=== PATIENT | male | born 1985 | race Caucasian/White ===

== ENCOUNTER 2017-11-10 07:03 | Emergency (ER) | payer BC ==
[2017-11-10 07:15] VITALS: BP 139/88
--- NOTE | 2017-11-10 07:23 | UC ---
Lower Extremity/Ankle HPI - HPI Summary HPI Summary: A 32 y/o M presents to [facility] with infected L great toe onset approx one month ago but worsening over the past few days. Sx include bleeding, purulent, edema. Denies fever. Pt states he cut the toenail too short. Pt has been putting Neosporin on it. No PMHx: MRSA. NKDA. - History of Current Complaint Chief Complaint: [place] Stated Complaint: TOE PAIN Time Seen by Provider: 11/10/17 07:10 Hx Obtained From: Patient Onset/Duration: Lasting Days - worsened, Still Present Severity Initially: Moderate Severity Currently: Moderate Pain Intensity: 5 Pain Scale Used: 0-10 Numeric - Allergies/Home Medications Allergies/Adverse Reactions: Allergies Allergy/AdvReac Type Severity Reaction Status Date / Time No Known Allergies Allergy Verified 11/10/17 07:15 Home Medications: Home Medications Loratadine [Claritin 10 MG CAP] 10 mg PO DAILY WITH MEAL 11/10/17 [History Confirmed 11/10/17] PMH/Surg Hx/FS Hx/Imm Hx Previously Healthy: Yes Other Cardiovascular History: neg: HTN Other Respiratory History: neg: COPD - Surgical History Surgical History: Yes Surgery Procedure, Year, and Place: wisdom teeth - Family History Known Family History: Positive: Hypertension Negative: Cardiac Disease, Diabetes - Social History Occupation: Employed Full-time Alcohol Use: Daily Substance Use Type: None Smoking Status (MU): Never Smoked Tobacco Review of Systems Constitutional: Other - neg: fever Skin: Other - L great toe has erythema, pus, swelling All Other Systems Reviewed And Are Negative: Yes Physical Exam - Summary Physical Exam Summary: General: well-appearing, no pain distress Skin: warm, color reflects adequate perfusion, dry. L foot lateral aspect has ingrown toenail, there is erythema, pus and drainage, but no streaking. Head: normal Eyes: EOMI, BERNY ENT: normal Neck: supple, nontender Respiratory: CTA, breath sounds present Cardiovascular: RRR Abdomen: soft, nontender Bowel: present Musculoskeletal: normal, strength/ROM intact Neurological: sensory/motor intact, A&O x3 Psychological: affect/mood appropriate Triage Information Reviewed: Yes Vital Signs: Initial Vital Signs Temp 98.3 F 11/10/17 07:11 Pulse 70 11/10/17 07:11 Resp 18 11/10/17 07:11 BP 139/88 11/10/17 07:11 Pulse Ox 98 11/10/17 07:11 Vital Signs Reviewed: Yes Lower Extremity Course/Dx - Course Course Of Treatment: BP noted and advised to follow up with PCP. Medications reviewed. Allergies noted. - Differential Dx/Diagnosis Provider Diagnoses: PARONYCHIA LEFT GREAT TOE Discharge - Sign-Out/Discharge Documenting (check all that apply): Patient Departure - DC All imaging exams completed and their final reports reviewed: No Studies - Discharge Plan Condition: Stable Disposition: HOME Prescriptions: Cephalexin CAP* [Keflex CAP*] 500 mg PO QID #40 cap Mupirocin 1 applic TOPICAL TID #22 gm Patient Education Materials: Ingrown Nail (ED) Referrals: [facility] [place] [facility] REFERRAL [Outside] Additional Instructions: FOLLOW UP WITH YOUR PRIMARY CARE DOCTOR OR RECORDS COORDINATOR IF NOT COMPLETELY IMPROVED. GET RECHECKED FOR ANY WORSENING OF YOUR CONDITION OR QUESTIONS OR CONCERNS. Your blood pressure was elevated during todays visit; please follow up with your primary care provider within a week for further evaluation. - Billing Disposition and Condition Condition: STABLE Disposition: Home - Attestation Statements Document Initiated by Scribe: Yes Documenting Scribe: Chapin Bradford Provider For Whom Scribe is Documenting (Include Credential): Prabhakar Wolfe MD Scribe Attestation: Chapin Tobin scribed for Prabhakar Wolfe MD on 11/10/17 at 0928. Scribe Documentation Reviewed: Yes Provider Attestation: The documentation as recorded by the Chapin benítez accurately reflects the service I personally performed and the decisions made by Prabhakar wills MD
== END 2017-11-10 07:40 | disposition home or self-care (01) ==
LOC: UCEAST 07:03
DX: L03.032 Cellulitis of left toe (principal)
CPT/HCPCS: 87070; 87077; 87186; 87205; 87640; 87641; 99212; G0463